=== PATIENT | male | born 1965 | race Caucasian/White ===

== ENCOUNTER 2025-08-04 07:32 | Outpatient (CLI) | payer OTHER ==
[2025-08-04 08:23] LABS: Estimated GFR - POC 116.0
== END 2025-08-04 07:33 | disposition home or self-care (01) ==
LOC: SCSMRI 07:32
PROVIDERS: ATTEND Urology
DX: R97.20 Elevated prostate specific antigen [PSA] (principal); N42.9 Disorder of prostate, unspecified; N32.89 Other specified disorders of bladder; S76.311A Strain of muscle, fascia and tendon of the posterior muscle group at thigh level, right thigh, initial encounter; S76.312A Strain of muscle, fascia and tendon of the posterior muscle group at thigh level, left thigh, initial encounter
CPT/HCPCS: 36415; 72197; 82565

== ENCOUNTER 2025-09-26 09:26 | Outpatient (CLI) | payer OTHER ==
[2025-09-26 10:32] LABS: Bacteria/HPF None Seen HPF (None Seen); Glucose, Urine (Dipstick) Normal (Negative); Leukocyte Negative Leu/uL (Negative); Protein, Urine (Dipstick) Negative (Neg-Trace); RBC/HPF None Seen HPF (0-3); Specific Gravity, Urine 1.005 (1.002-1.036); WBC/HPF None Seen HPF (0-3)
[2025-09-26 10:50] LABS: Anion Gap 11 mmol/L (10-20); BUN (Urea Nitrogen) 14 mg/dL (8.4-25.7); Calc. Creatinine Clearance 0 mL/min (70-130); Calcium 9.3 mg/dL (7.8-10.44); Carbon Dioxide 26 mmol/L (23-31); Chloride 107 mmol/L (98-107); Glucose 108 mg/dL (80-115); Potassium 3.7 mmol/L (3.5-5.1); Sodium 140 mmol/L (136-145)
[2025-09-26 10:54] LABS: INR-International Normal Ratio 1.2; PTT 39.3 sec (22.9-36.1); Prothrombin Time 14.8 sec (12.0-14.7)
[2025-09-26 11:22] LABS: #Basophils 0.04 10x3/uL (0.0-0.2); #Eosinophils 0.07 10x3/uL (0.0-0.7); #Monocytes 0.51 10x3/uL (0.11-0.59); #Neutrophils 3.47 10x3/uL (1.40-6.50); %Basophils 0.8 % (0.0-1.0); %Eosinophils 1.4 % (0.0-10.0); %Lymphocytes 18.4 % (21.0-51.0); %Monocytes 10.1 % (0.0-10.0); %Neutrophils 68.5 % (42.0-75.0); Hematocrit 38.6 % (42.0-52.0); Hemoglobin 13.3 g/dL (14.0-18.0); Mean Corpuscular Hemoglobin 30.7 pg (27.0-31.0); Mean Corpuscular Volume 89.1 fL (78.0-98.0); Platelet Count 132 10x3/uL (130-400); Red Blood Cell (RBC) Count 4.33 mill/uL (4.70-6.10); White Blood Cell (WBC) Count 5.06 10x3/uL (4.8-10.8)
== END 2025-09-26 09:27 | disposition home or self-care (01) ==
LOC: LABBT 09:26
PROVIDERS: ATTEND Urology
DX: Z01.818 Encounter for other preprocedural examination (principal); R97.20 Elevated prostate specific antigen [PSA]; C91.10 Chronic lymphocytic leukemia of B-cell type not having achieved remission; I48.91 Unspecified atrial fibrillation; K59.00 Constipation, unspecified; R59.1 Generalized enlarged lymph nodes; Z79.01 Long term (current) use of anticoagulants
CPT/HCPCS: 71046; 80048; 81001; 84153; 85025; 85610; 85730; 87086; 93005; 93010